=== PATIENT | male | born 1940 ===

== ENCOUNTER 2018-12-30 22:57 | Emergency (ER) | payer OTHER ==
[2018-12-30 22:57] VITALS: BMI 28.5
--- NOTE | 2018-12-30 23:37 | C.PDOC ---
History Of Present Illness 78 year old male presents to the ED c/o not being able to urinate since this afternoon. Patient reports he had a carmona removed by a Urologist this afternoon. Patient denies fever, chills, nausea, vomit, diarrhea, rash, dizziness. Chief Complaint (Nursing): Male Genitourinary History Per: Patient History/Exam Limitations: no limitations Onset/Duration Of Symptoms: Hrs Current Symptoms Are (Timing): Still Present Quality Of Discomfort: Pressure Associated Symptoms: Urinary Symptoms. denies: Nausea, Vomiting, Diarrhea Recent travel outside of the [place]: No Additional History Per: Patient Past Medical History Reviewed: Historical Data, Nursing Documentation, Vital Signs Vital Signs: Last Vital Signs Temp 98.3 F 12/30/18 23:07 Pulse 77 12/30/18 23:07 Resp 20 12/30/18 23:07 BP 136/76 12/30/18 23:07 Pulse Ox 98 12/30/18 23:07 Primary Care Provider: Sandeep Jauregui - Medical History PMH: Asthma, Chronic Kidney Disease Surgical History: No Surg Hx Family History: States: Unknown Family Hx - Social History Hx Alcohol Use: No Hx Substance Use: No - Immunization History Hx Tetanus Toxoid Vaccination: No Hx Influenza Vaccination: No Hx Pneumococcal Vaccination: No Review Of Systems Constitutional: Negative for: Fever, Chills Gastrointestinal: Positive for: Abdominal Pain. Negative for: Nausea, Vomiting, Diarrhea Genitourinary: Positive for: Other (urinary retention). Negative for: Dysuria, Hematuria Musculoskeletal: Negative for: Back Pain Skin: Negative for: Rash Neurological: Negative for: Weakness, Numbness, Headache Physical Exam - Physical Exam Appears: Non-toxic, In Acute Distress Skin: Normal Color, Warm, Dry Head: Atraumatic, Normacephalic Eye(s): bilateral: Normal Inspection Neck: Normal ROM, Supple Chest: Symmetrical Cardiovascular: Rhythm Regular Respiratory: Normal Breath Sounds, No Rales, No Rhonchi, No Wheezing Gastrointestinal/Abdominal: Soft, Tenderness (hypogastric), No Guarding, No Rebound, Other (hypogastric fullness) Back: No CVA Tenderness Extremity: Normal ROM, No Tenderness Neurological/Psych: Oriented x3, Normal Speech, Normal Cognition Gait: Steady ED Course And Treatment O2 Sat by Pulse Oximetry: 98 (ON RA) Pulse Ox Interpretation: Normal Medical Decision Making Medical Decision Making: Plan: * Urine culture * UA Carmona was placed in the ED. Disposition Counseled Patient/Family Regarding: Diagnosis - Disposition Referrals: Kar Lima Jr., MD [Staff Provider] - Disposition: HOME/ ROUTINE Disposition Time: 00:58 Condition: STABLE Prescriptions: Ciprofloxacin [Cipro] 1 tab PO BID #14 tab Instructions: Urinary Retention (DC), How to Care for Your Carmona Catheter, Male, Urinary Tract Infections in Adults Forms: [employer] ([place]ian), Gen Discharge Inst Lithuanian - POA Present On Arrival: None - Clinical Impression Clinical Impression: Urinary retention, Urinary tract infection - Scribe Statement The provider has reviewed the documentation as recorded by the Scribe Tano Higgins All medical record entries made by the Scribe were at my direction and personally dictated by me. I have reviewed the chart and agree that the record accurately reflects my personal performance of the history, physical exam, medical decision making, and the department course for this patient. I have also personally directed, reviewed, and agree with the discharge instructions and disposition.
[2018-12-31 00:38] LABS: SQUAMOUS EPITHIAL < 1 /hpf (0-5); URINE BACTERIA FEW (<OCC); URINE BILIRUBIN NEGATIVE (NEGATIVE); URINE BLOOD 2+ (NEGATIVE); URINE CLARITY Hazy (Clear); URINE COLOR Yellow (YELLOW); URINE GLUCOSE (UA) NORMAL (Normal); URINE LEUKOCYTE ESTERASE 3+ Leu/uL (Negative); URINE PROTEIN NEGATIVE (NEGATIVE)
[2018-12-31 01:19] VITALS: BP 132/74; PULSE 79; RESP 18; TEMP 98.2; O2SAT 99
== END 2018-12-31 01:19 | disposition home or self-care (01) ==
LOC: C.ER 22:57
DX: R33.9 Retention of urine, unspecified (principal); N39.0 Urinary tract infection, site not specified